=== PATIENT | female | born 1975 | race Caucasian/White ===

== ENCOUNTER 2018-06-03 09:52 | Outpatient (CLI) | payer OTHER | END 2018-06-03 10:28 | disposition home or self-care (01) | LOC: LAB 09:52 | DX: E03.8 Other specified hypothyroidism (principal); D63.8 Anemia in other chronic diseases classified elsewhere; N39.0 Urinary tract infection, site not specified; E78.2 Mixed hyperlipidemia; Z34.81 Encounter for supervision of other normal pregnancy, first trimester ==

== ENCOUNTER → 2018-10-25 | Outpatient (CLI) | payer OTHER | END | disposition home or self-care (01) | LOC: NST 15:22 | DX: Z34.83 Encounter for supervision of other normal pregnancy, third trimester (principal) ==

== ENCOUNTER 2018-10-27 08:54 | Outpatient (CLI) | payer OTHER | END 2018-10-27 09:49 | disposition home or self-care (01) | LOC: NST 08:54 | DX: Z34.83 Encounter for supervision of other normal pregnancy, third trimester (principal) ==

== ENCOUNTER → 2018-11-02 | Outpatient (CLI) | payer OTHER | END | disposition home or self-care (01) | LOC: NST 13:56 | DX: Z34.83 Encounter for supervision of other normal pregnancy, third trimester (principal) ==

== ENCOUNTER 2018-11-30 10:50 | Inpatient (IN) | payer OTHER ==
[~2018-11-30] VITALS: Ht 172.7 cm; Wt 3.2 kg
[2018-12-08] MEDS ORDERED: PRENATAL TABLE1 EAC1 PO (13:44)
[2018-12-08] MEDS ORDERED: IRON325 MG PO (13:44)
[2018-12-08] MEDS ORDERED: ZANTAC150 M3 PO (13:44)
[2018-12-18] MEDS ORDERED: GAS RELIEF180 MG PO (10:10)
[2018-12-18] MEDS ORDERED: TUMS ULTRA400 MG PO (10:10)
== END 2018-12-21 13:13 | disposition home or self-care (01) | DRG 788 ==
LOC: OB/GYN 12-07 12:00 → LDR 12-18 08:14 → O/R 12-18 21:59 → OB/GYN 12-18 22:13
PROVIDERS: ADMIT Obstetrics & Gynecology Maternal & Fetal Medicine
PROC: 3E033VJ Introduction of Other Hormone into Peripheral Vein, Percutaneous Approach (ICD-10-PCS; 2018-12-18)
PROC: 4A1HXCZ Monitoring of Products of Conception, Cardiac Rate, External Approach (ICD-10-PCS; 2018-12-18)
PROC: 10D00Z1 Extraction of Products of Conception, Low, Open Approach (ICD-10-PCS; principal; 2018-12-18 21:15)
DX: O61.0 Failed medical induction of labor (principal); Z3A.39 39 weeks gestation of pregnancy; Z37.0 Single live birth

== ENCOUNTER 2018-12-08 12:24 | Inpatient (IN) | payer OTHER ==
[~2018-12-08] VITALS: Ht 172.7 cm; Wt 72.6 kg
[2018-12-08] MEDS ORDERED: PRENATAL TABLE1 EAC1 PO (13:44)
[2018-12-08] MEDS ORDERED: ZANTAC150 M3 PO (13:44)
[2018-12-08] MEDS ORDERED: IRON325 MG PO (13:44)
== END 2018-12-10 13:33 | disposition home or self-care (01) | DRG 833 ==
LOC: OB/GYN 12:24 → LDR 12:24 → OB/GYN 12-09 10:37
PROVIDERS: ADMIT Obstetrics & Gynecology Maternal & Fetal Medicine
PROC: 3E0F7GC Introduction of Other Therapeutic Substance into Respiratory Tract, Via Natural or Artificial Opening (ICD-10-PCS; principal; 2018-12-08)
PROC: 4A1HXCZ Monitoring of Products of Conception, Cardiac Rate, External Approach (ICD-10-PCS; 2018-12-08)
DX: O26.893 Other specified pregnancy related conditions, third trimester (principal); J10.1 Influenza due to other identified influenza virus with other respiratory manifestations; Z34.03 Encounter for supervision of normal first pregnancy, third trimester; B96.0 Mycoplasma pneumoniae [M. pneumoniae] as the cause of diseases classified elsewhere; J20.8 Acute bronchitis due to other specified organisms

== ENCOUNTER 2018-12-14 10:05 | Outpatient (CLI) | payer OTHER ==
[~2018-12-14 10:05] MED LIST: IRON325 MG PO; PRENATAL TABLE1 EAC1 PO; ZANTAC150 M3 PO
== END 2018-12-14 12:31 | disposition home or self-care (01) ==
LOC: NST 10:05
DX: Z34.83 Encounter for supervision of other normal pregnancy, third trimester (principal)